=== PATIENT | female | born 1945 | race African-American/Black ===

== ENCOUNTER 2018-03-31 09:08 | Outpatient (CLI) | payer MEDICARE ==
--- NOTE | 2018-03-31 16:22 | MMO ---
BILATERAL DIGITAL SCREENING MAMMOGRAMS: Date: 03/31/18 This patient's mammogram was interpreted with the assistance of computer-aided detection. Comparison made with exams of 07/19/11 and 07/18/10. FINDINGS: The breast tissue is heterogeneously dense, which may reduce the sensitivity of mammography. Occasion al benign calcifications are present. No suspicious masses or calcifications are seen. IMPRESSION: BIRADS 2: Benign Finding(s) Return to annual mammographic screening. POS: [facility]
== END 2018-03-31 09:09 | disposition home or self-care (01) ==
LOC: SCSMAMMO 09:08
PROVIDERS: ATTEND Family Medicine
DX: Z12.31 Encounter for screening mammogram for malignant neoplasm of breast (principal)
CPT/HCPCS: 77067